=== PATIENT | male | born 1985 | race Hispanic/Latino ===

== ENCOUNTER 2022-04-13 09:31 | Emergency (ER) | payer OTHER, MEDICAID, SELFPAY ==
[2022-04-13] VITALS (13 sets, daily range): BP systolic 112–140; BP diastolic 58–82; PULSE 75–97; RESP 12–20; TEMP 36.6; O2SAT 98–100
[2022-04-13 10:39] LABS: Add Manual Diff / Slide Review NO; Basophils Absolute Auto 0 /uL (0-100); Basophils Percent Auto 0.3 % (0-2); Eosinophils Absolute Auto 100 /uL (0-450); Eosinophils Percent Auto 1.2 % (2-4); Hematocrit 36.2 % (41-53); Hemoglobin 12.5 g/dL (13.5-17.5); Lymphocytes Absolute Auto 2500 /uL (1100-4500); Lymphocytes Percent Auto 26.9 % (25-40); Mean Corpuscular HGB Conc 34.5 % (30-36); Mean Corpuscular Hemoglobin 28.5 PG (26-34); Mean Corpuscular Volume 82.5 fL (80-100); Monocytes Absolute Auto 400 /uL (0-900); Monocytes Percent Auto 3.9 % (3-14); Neutrophils Absolute Auto 6200 /uL (1500-7000); Neutrophils Percent Auto 67.7 % (50-75); Platelet Count 177 X10^3/uL (150-400); Red Blood Cell Count 4.39 X10^6/uL (4.5-5.9); Red Cell Distribution Width 14.1 % (11.6-14.8); White Blood Cell Count 9.2 X10^3/uL (4.5-11.0)
[2022-04-13 10:49] LABS: Alanine Aminotransferase 22 IU/L (<50); Albumin Globulin Ratio 1.2 (1.0-2.8); Aspartate Aminotransferase 33 IU/L (17-59); BUN Creatinine Ratio 21.8 (6-22); Bilirubin Total 0.6 mg/dL (0.2-1.3); Blood Urea Nitrogen 12 mg/dL (9-20); Calcium 8.8 mg/dL (8.4-10.2); Carbon Dioxide 31 mmol/L (22-32); Chloride 100 mmol/L (98-107); Estimated Glomerular Filt Rate > 60 mL/min (>60); Globulin 3.4 g/dL (1.7-4.1); Glucose 98 mg/dL (70-100); Lipase 71 U/L (23-300); Sodium 138 mmol/L (137-145); Total Protein 7.4 g/dL (6.3-8.2)
[2022-04-13 10:56] LABS: HEMOLYSIS 66 (0-50)
[2022-04-13 10:57] LABS: Potassium 4.2 mmol/L (3.4-5.1)
[2022-04-13 11:00] LABS: Alkaline Phosphatase 39 U/L (38-126); Ethanol (ETOH) < 10 mg/dL
[2022-04-13 11:23] LABS: UR Morphine/Opiate cutoff 300 Negative (Negative); Ur Creatinine Normal (Normal); Ur Specific Gravity Normal (Normal); Urine Amphetamines Negative (Negative); Urine Barbiturates Negative (Negative); Urine Benzodiazepines Negative (Negative); Urine Cocaine Negative (Negative); Urine MDMA Negative (Negative); Urine Methadone Negative (Negative); Urine Methamphetamines Positive (Negative); Urine Oxycodone Negative (Negative); Urine Phencyclidine Negative (Negative); Urine Tetrahydrocannabinol Negative (Negative); Urine Tricyclic Antidepressant Negative (Negative); Urine pH Normal (Normal)
[2022-04-13 11:31] LABS: Amorphous Sediment Urine 2+; RBC Urine None Seen (0-5/HPF); WBC Urine 0-1/HPF (0-5/HPF)
[2022-04-13 11:32] LABS: Bacteria Urine Few (2-10); Culture Indicated Urine Cult Not Indicated
--- NOTE | 2022-04-13 13:08 | DI.CT.S_ITS ---
PROCEDURE: CT ABDOMEN PELVIS W CON INDICATIONS: Generalized abdomnal pain TECHNIQUE: After the administration of intravenous contrast, axial sections acquired from the lung bases to the pubic symphysis. Coronal and sagittal reformats were performed. For radiation dose reduction, the following was used: automated exposure control, adjustment of mA and/or kV according to patient size. COMPARISON: None. FINDINGS: Image quality: Excellent. Lung bases: Unremarkable. Heart: No significant findings. ABDOMEN: Liver: Unremarkable. Gallbladder: Unremarkable. Biliary ducts: Unremarkable. Pancreas: Unremarkable. Spleen: Unremarkable. Adrenal Glands: Unremarkable. Kidneys and Ureters: Unremarkable. Stomach and Bowel: Stomach is within normal limits. There are multiple mildly to moderately distended loops of small bowel within the left hemiabdomen. Multiple moderately thickened loops of small bowel within the left hemiabdomen and anterior abdomen and pelvis with mild surrounding fat stranding. Colon is nondistended and demonstrates moderate diffuse stool. Normal appendix. Peritoneum: Small amount of free pelvic fluid. No free air. Ventral Wall: No hernias. Abdominal Nodes: No retroperitoneal or mesenteric adenopathy by size criteria. Vessels: Aorta and inferior vena cava are normal in size. PELVIS: Pelvic Organs: Unremarkable. Bladder: Unremarkable. Pelvic Nodes: No enlarged lymph nodes. Miscellaneous: No hernias are seen. Bones: Unremarkable. IMPRESSION: 1. Thickened and distended small bowel loops as described above. Differential considerations include ischemia, infection, inflammation with associated ileus versus early obstruction. 2. Normal appendix. 3. Small amount of ascites. Dictated by: Juliana Madrid M.D. on 04/13/2022 at 13:37 Approved by: Juliana Madrid M.D. on 04/13/2022 at 13:39
--- NOTE | 2022-04-13 13:10 | ED_ITS ---
HPI - Abdominal Pain <Nessa Mccarthy PA-C - Last Filed: 04/13/22 14:53> General Chief Complaint: Abdominal Pain Stated Complaint: abd pain Time Seen by Provider: 04/13/22 09:41 Source: patient Mode of arrival: EMS History of Present Illness HPI narrative: 36-year-old male on methadone brought in by EMS from the methadone clinic this morning for appearing overly somnolent. Patient states that he went to his methadone clinic this morning, ?felt like he was hit by a lightening bolt?, felt nauseous and vomited once. Patient also endorses somnolence, abdominal pain. Patient localizes abdominal pain to what ever is the dependent area of the abdomen, depending on his posture. Patient states that his left side hurts if he is turning to his left. Patient denies fever, chills, chest pain, shortness of breath, dysuria, flank pain. Patient endorses that his feet have been bilaterally swollen for the last 2 days, he is uncertain why. Patient endorses using fentanyl 3 days ago. Denies any other drug use. Denies alcohol use. Patient states that he was diagnosed as prediabetic, suspects that his sleepiness is from his blood glucose levels. Review of Systems <Nessa Mccarthy PA-C - Last Filed: 04/13/22 14:53> Review of Systems ROS Unobtainable: All systems reviewed & are unremarkable except as noted in HPI and below Constitutional Constitutional: Denies chills, Denies fatigue, Denies fever(s), Denies frequent falls, Denies lethargy and Denies weakness Comments: Sleepiess Eyes Eyes: Denies change in vision, Denies eye discharge, Denies irritation and Denies loss of vision ENT Ears, Nose, Mouth, and Throat: Denies change in voice, Denies dizziness, Denies neck pain, Denies sore throat and Denies throat swelling Cardiovascular Cardiovascular: Denies chest pain, Denies irregular heart rhythm, Denies lightheadedness, Denies palpitations, Denies dyspnea, Denies dyspnea on exertion and Denies orthopnea Respiratory Respiratory: Denies cough, Denies dyspnea, Denies dyspnea on exertion and Denies wheezing Gastrointestinal Gastrointestinal: Reports abdominal pain, Denies change in bowel habits, Denies diarrhea, Reports nausea and Reports vomiting Genitourinary Genitourinary: Denies hematuria, Denies flank pain, Denies urinary incontinence and Denies urinary urgency Musculoskeletal Musculoskeletal: Denies back pain, Denies muscle weakness, Denies neck pain, Denies numbness and Denies tingling Integumentary/Breasts Skin/Breast: Denies pruritus, Denies erythema, Denies rash and Denies wounds Neurologic Neurologic: Denies behavioral changes, Denies confusion, Denies dizziness, Denies frequent falls, Denies loss of vision, Denies numbness, Denies tingling and Denies weakness Psychiatric Psychiatric: Denies anxiety, Denies behavioral changes, Denies confusion, Denies depression, Denies homicidal ideation and Denies suicidal ideation Endocrine Endocrine: Denies fatigue, Denies flushing and Denies palpitations Hematologic/Lymphatic Hematologic/Lymphatic: Denies easy bruising Allergic/Immunologic Allergic/Immunologic: Denies urticaria, Denies throat swelling and Denies wheezing Patient History <Nessa Mccarthy PA-C - Last Filed: 04/13/22 14:53> Substance Use Type: opiates Exam <Nessa Mccarthy PA-C - Last Filed: 04/13/22 14:53> Narrative Exam Narrative: Const General:?cooperative, appears somnolent but arousable. [facility] Head:?normal to inspection Ears:?hearing grossly normal bilaterally Nose:?external nose normal Face and sinus:?normal facial exam and sinuses nontender Mouth:?oral mucosae normal Throat:?posterior oropharynx normal Eyes General:?appearance normal, both eyes and all related structures Neck Neck:?normal visual inspection and no lymphadenopathy noted Resp Effort & Inspection:?normal respiratory effort Auscultation:?clear to auscultation bilaterally Cardio Rate:?regular rate Rhythm:?regular rhythm GI Generalized tenderness to palpation. Abdomen is soft, nondistended. Neuro General:?patient alert, patient awake and patient oriented x3 Initial Vital Signs Initial Vital Signs: Vital Signs Temperature 97.8 F 04/13/22 09:36 Pulse Rate 86 04/13/22 09:36 Respiratory Rate 20 04/13/22 09:36 Blood Pressure 112/68 04/13/22 09:36 Pulse Oximetry 100 04/13/22 09:36 Oxygen Delivery Method 04/13/22 09:36 <Griselda Vogt DO - Last Filed: 04/14/22 08:04> Initial Vital Signs Initial Vital Signs: Vital Signs Temperature 97.8 F 04/13/22 09:36 Pulse Rate 86 04/13/22 09:36 Respiratory Rate 20 04/13/22 09:36 Blood Pressure 112/68 04/13/22 09:36 Pulse Oximetry 100 04/13/22 09:36 Oxygen Delivery Method 04/13/22 09:36 Course <Nessa Mccarthy PA-C - Last Filed: 04/13/22 14:53> Orders Ordered: Discontinued Medications Sodium Chloride (Normal Saline 0.9%) 1,000 mls @ 1,000 mls/hr IV BOLUS ONE Stop: 04/13/22 14:08 Last Infusion: 04/13/22 15:49 Dose: 0 mls/hr Documented By: Admin: 04/13/22 14:03 Dose: 1,000 mls/hr Documented By: ABHINAV Ondansetron HCl (Ondansetron 4 Mg/2 Ml Inj) 4 mg IV NOW ONE Stop: 04/13/22 13:23 Last Admin: 04/13/22 14:02 Dose: 4 mg Documented By: ABHINAV Vital Signs Vital signs: Vital Signs - 8 hr 04/13/22 09:36 04/13/22 10:33 04/13/22 11:00 Temperature 97.8 F Pulse Rate 86 76 97 H Respiratory Rate 20 13 Blood Pressure 112/68 Pulse Oximetry 100 99 Oxygen Delivery Method Room Air Room Air 04/13/22 11:30 04/13/22 12:00 04/13/22 12:30 Temperature Pulse Rate 79 78 92 H Respiratory Rate 16 19 19 Blood Pressure Pulse Oximetry 100 99 Oxygen Delivery Method Room Air <Griselda Vogt DO - Last Filed: 04/14/22 08:04> Orders Ordered: Discontinued Medications Sodium Chloride (Normal Saline 0.9%) 1,000 mls @ 1,000 mls/hr IV BOLUS ONE Stop: 04/13/22 14:08 Last Infusion: 04/13/22 15:49 Dose: 0 mls/hr Documented By: Admin: 04/13/22 14:03 Dose: 1,000 mls/hr Documented By: ABHINAV Ondansetron HCl (Ondansetron 4 Mg/2 Ml Inj) 4 mg IV NOW ONE Stop: 04/13/22 13:23 Last Admin: 04/13/22 14:02 Dose: 4 mg Documented By: ABHINAV Vital Signs Vital signs: Vital Signs - 8 hr 04/13/22 09:36 04/13/22 10:33 04/13/22 11:00 Temperature 97.8 F Pulse Rate 86 76 97 H Respiratory Rate 20 13 Blood Pressure 112/68 Pulse Oximetry 100 99 Oxygen Delivery Method Room Air Room Air 04/13/22 11:30 04/13/22 12:00 04/13/22 12:30 Temperature Pulse Rate 79 78 92 H Respiratory Rate 16 19 19 Blood Pressure Pulse Oximetry 100 99 Oxygen Delivery Method Room Air MDM - Abdominal Pain <Nessa Mccarthy PA-C - Last Filed: 04/13/22 14:53> Lab Data Lab results narrative: Labs within normal limits Result diagrams: 04/13/22 10:20 04/13/22 10:20 Labs: Lab Results 04/13/22 04/13/22 04/13/22 Range/Units 10:20 10:20 10:20 WBC 9.2 (4.5-11.0) X10^3/uL RBC 4.39 L (4.5-5.9) X10^6/uL Hgb 12.5 L (13.5-17.5) g/dL Hct 36.2 L (41-53) % MCV 82.5 (80-100) fL MCH 28.5 (26-34) PG MCHC 34.5 (30-36) % RDW 14.1 (11.6-14.8) % Plt Count 177 (150-400) X10^3/uL Neut % (Auto) 67.7 (50-75) % Lymph % (Auto) 26.9 (25-40) % [place] % (Auto) 3.9 (3-14) % Eos % (Auto) 1.2 L (2-4) % Baso % (Auto) 0.3 (0-2) % Neut # (Auto) 6200 (5745-0313) /uL Lymph # (Auto) 2500 (7474-3589) /uL [place] # (Auto) 400 (0-900) /uL Eos # (Auto) 100 (0-450) /uL Baso # (Auto) 0 (0-100) /uL Sodium 138 (137-145) mmol/L Potassium 4.2 (3.4-5.1) mmol/L Chloride 100 (98-107) mmol/L Carbon Dioxide 31 (22-32) mmol/L BUN 12 (9-20) mg/dL Creatinine 0.55 L (0.66-1.25) mg/dL Estimated GFR > 60 (>60) mL/min BUN/Creatinine Ratio 21.8 (6-22) Glucose 98 (70-100) mg/dL Calcium 8.8 (8.4-10.2) mg/dL Total Bilirubin 0.6 (0.2-1.3) mg/dL AST 33 (17-59) IU/L ALT 22 (<50) IU/L Alkaline Phosphatase 39 (38-126) U/L Total Protein 7.4 (6.3-8.2) g/dL Albumin 4.0 (3.5-5.0) g/dL Globulin 3.4 (1.7-4.1) g/dL Albumin/Globulin Ratio 1.2 (1.0-2.8) Lipase 71 (23-300) U/L Urine RBC (0-5/HPF) Urine WBC (0-5/HPF) Amorphous Sediment Urine Bacteria (None) Ur Culture Indicated? U Opiates 300ng/mL cut (Negative) Ur Oxycodone Screen (Negative) Urine Methadone Screen (Negative) Ur Barbiturates Screen (Negative) U Tricyclic Antidepress (Negative) Ur Phencyclidine Scrn (Negative) Ur Amphetamines Screen (Negative) U Methamphetamines Scrn (Negative) Ur MDMA Scrn (Ecstasy) (Negative) U Benzodiazepines Scrn (Negative) Urine Cocaine Screen (Negative) U Marijuana (THC) Screen (Negative) Ethyl Alcohol < 10 ( - 10) mg/dL 04/13/22 04/13/22 Range/Units 11:05 11:05 WBC (4.5-11.0) X10^3/uL RBC (4.5-5.9) X10^6/uL Hgb (13.5-17.5) g/dL Hct (41-53) % MCV (80-100) fL MCH (26-34) PG MCHC (30-36) % RDW (11.6-14.8) % Plt Count (150-400) X10^3/uL Neut % (Auto) (50-75) % Lymph % (Auto) (25-40) % [place] % (Auto) (3-14) % Eos % (Auto) (2-4) % Baso % (Auto) (0-2) % Neut # (Auto) (7738-5760) /uL Lymph # (Auto) (6954-3735) /uL [place] # (Auto) (0-900) /uL Eos # (Auto) (0-450) /uL Baso # (Auto) (0-100) /uL Sodium (137-145) mmol/L Potassium (3.4-5.1) mmol/L Chloride (98-107) mmol/L Carbon Dioxide (22-32) mmol/L BUN (9-20) mg/dL Creatinine (0.66-1.25) mg/dL Estimated GFR (>60) mL/min BUN/Creatinine Ratio (6-22) Glucose (70-100) mg/dL Calcium (8.4-10.2) mg/dL Total Bilirubin (0.2-1.3) mg/dL AST (17-59) IU/L ALT (<50) IU/L Alkaline Phosphatase (38-126) U/L Total Protein (6.3-8.2) g/dL Albumin (3.5-5.0) g/dL Globulin (1.7-4.1) g/dL Albumin/Globulin Ratio (1.0-2.8) Lipase (23-300) U/L Urine RBC None seen (0-5/HPF) Urine WBC 0-1/hpf (0-5/HPF) Amorphous Sediment 2+ Urine Bacteria Few (2-10) H (None) Ur Culture Indicated? Cult not indicated U Opiates 300ng/mL cut Negative (Negative) Ur Oxycodone Screen Negative (Negative) Urine Methadone Screen Negative (Negative) Ur Barbiturates Screen Negative (Negative) U Tricyclic Antidepress Negative (Negative) Ur Phencyclidine Scrn Negative (Negative) Ur Amphetamines Screen Negative (Negative) U Methamphetamines Scrn Positive H (Negative) Ur MDMA Scrn (Ecstasy) Negative (Negative) U Benzodiazepines Scrn Negative (Negative) Urine Cocaine Screen Negative (Negative) U Marijuana (THC) Screen Negative (Negative) Ethyl Alcohol ( - 10) mg/dL Point of care testing: Urine Dip Bedside Urine Glucose Negative Bedside Urine Bilirubin - Negative Bedside Urine Ketone - Negative Urine Specific [place] 1.010 Bedside Urine Occult Blood - Negative Bedside Urine pH 8.5 Bedside Urine Protein +/- 15 Bedside Urine Urobilinogen - Negative Bedside Urine Nitrite - Negative Bedside Urine Leukocytes - Negative Esterase Imaging Data CT scan - abdomen/pelvis: Radiologist's Impression: PROCEDURE:? CT ABDOMEN PELVIS W CON ? INDICATIONS:? Generalized abdomnal pain ? TECHNIQUE:? After the administration of intravenous contrast, axial sections acquired from the lung bases to the pubic symphysis.? Coronal and sagittal reformats were performed.? For radiation dose reduction, the following was used:? automated exposure control, adjustment of mA and/or kV according to patient size.? ? COMPARISON:? None. ? FINDINGS:? Image quality:? Excellent.? ? Lung bases:? Unremarkable. Heart:? No significant findings. ? ABDOMEN: Liver:? Unremarkable.? ? Gallbladder:? Unremarkable.? ? Biliary ducts:? Unremarkable.? ? Pancreas:? Unremarkable.? ? Spleen:? Unremarkable.? ? Adrenal Glands:? Unremarkable.? ? Kidneys and Ureters:? Unremarkable.? ? ? Stomach and Bowel:? Stomach is within normal limits.? There are multiple mildly to moderately distended loops of small bowel within the left hemiabdomen.? Multiple moderately thickened loops of small bowel within the left hemiabdomen and anterior abdomen and pelvis with mild surrounding fat stranding.? Colon is nondistended and demonstrates moderate diffuse stool.? Normal appendix. Peritoneum:? Small amount of free pelvic fluid.? No free air.? ? Ventral Wall: ? No hernias.? Abdominal Nodes:? No retroperitoneal or mesenteric adenopathy by size criteria.? Vessels:? Aorta and inferior vena cava are normal in size.? ? PELVIS: Pelvic Organs:? Unremarkable.? ? Bladder:? Unremarkable.? ? Pelvic Nodes: No enlarged lymph nodes.? Miscellaneous: No hernias are seen. ? ? ? Bones:? Unremarkable.? IMPRESSION:? 1. Thickened and distended small bowel loops as described above.? Differential considerations include ischemia, infection, inflammation with associated ileus versus early obstruction. 2. Normal appendix. 3. Small amount of ascites.? ? ? Dictated by: Juliana Madrid M.D. on 04/13/2022 at 13:37 ? ? MDM Narrative Medical decision making narrative: 36-year-old male on methadone brought in by EMS from the methadone clinic this morning for appearing overly somnolent. Concern for intra-abdominal pathology versus opiate use versus other. Will obtain labs, U tox, ethanol, UA, CT abdomen pelvis. Will give IV fluids, Zofran. Will reassess. Labs, UA within normal limits. CT shows: Thickened and distended small bowel loops as described above.? Differential considerations include ischemia, infection, inflammation with associated ileus versus early obstruction. Patient's symptoms improved over ED stay. Patient states abdominal pain significantly improved. Patient is more awake. Patient not nauseous or vomiting. Patient eager to go home, agrees to come to the ED if his symptoms worsen. ED return precautions discussed in detail. Patient verbalized und erstanding. <Griselda Vogt, DO - Last Filed: 04/14/22 08:04> Lab Data Labs: Lab Results 04/13/22 04/13/22 04/13/22 Range/Units 10:20 10:20 10:20 WBC 9.2 (4.5-11.0) X10^3/uL RBC 4.39 L (4.5-5.9) X10^6/uL Hgb 12.5 L (13.5-17.5) g/dL Hct 36.2 L (41-53) % MCV 82.5 (80-100) fL MCH 28.5 (26-34) PG MCHC 34.5 (30-36) % RDW 14.1 (11.6-14.8) % Plt Count 177 (150-400) X10^3/uL Neut % (Auto) 67.7 (50-75) % Lymph % (Auto) 26.9 (25-40) % [place] % (Auto) 3.9 (3-14) % Eos % (Auto) 1.2 L (2-4) % Baso % (Auto) 0.3 (0-2) % Neut # (Auto) 6200 (7332-7502) /uL Lymph # (Auto) 2500 (0904-0581) /uL [place] # (Auto) 400 (0-900) /uL Eos # (Auto) 100 (0-450) /uL Baso # (Auto) 0 (0-100) /uL Sodium 138 (137-145) mmol/L Potassium 4.2 (3.4-5.1) mmol/L Chloride 100 (98-107) mmol/L Carbon Dioxide 31 (22-32) mmol/L BUN 12 (9-20) mg/dL Creatinine 0.55 L (0.66-1.25) mg/dL Estimated GFR > 60 (>60) mL/min BUN/Creatinine Ratio 21.8 (6-22) Glucose 98 (70-100) mg/dL Calcium 8.8 (8.4-10.2) mg/dL Total Bilirubin 0.6 (0.2-1.3) mg/dL AST 33 (17-59) IU/L ALT 22 (<50) IU/L Alkaline Phosphatase 39 (38-126) U/L Total Protein 7.4 (6.3-8.2) g/dL Albumin 4.0 (3.5-5.0) g/dL Globulin 3.4 (1.7-4.1) g/dL Albumin/Globulin Ratio 1.2 (1.0-2.8) Lipase 71 (23-300) U/L Urine RBC (0-5/HPF) Urine WBC (0-5/HPF) Amorphous Sediment Urine Bacteria (None) Ur Culture Indicated? U Opiates 300ng/mL cut (Negative) Ur Oxycodone Screen (Negative) Urine Methadone Screen (Negative) Ur Barbiturates Screen (Negative) U Tricyclic Antidepress (Negative) Ur Phencyclidine Scrn (Negative) Ur Amphetamines Screen (Negative) U Methamphetamines Scrn (Negative) Ur MDMA Scrn (Ecstasy) (Negative) U Benzodiazepines Scrn (Negative) Urine Cocaine Screen (Negative) U Marijuana (THC) Screen (Negative) Ethyl Alcohol < 10 ( - 10) mg/dL 04/13/22 04/13/22 Range/Units 11:05 11:05 WBC (4.5-11.0) X10^3/uL RBC (4.5-5.9) X10^6/uL Hgb (13.5-17.5) g/dL Hct (41-53) % MCV (80-100) fL MCH (26-34) PG MCHC (30-36) % RDW (11.6-14.8) % Plt Count (150-400) X10^3/uL Neut % (Auto) (50-75) % Lymph % (Auto) (25-40) % [place] % (Auto) (3-14) % Eos % (Auto) (2-4) % Baso % (Auto) (0-2) % Neut # (Auto) (2696-1648) /uL Lymph # (Auto) (2670-8096) /uL [place] # (Auto) (0-900) /uL Eos # (Auto) (0-450) /uL Baso # (Auto) (0-100) /uL Sodium (137-145) mmol/L Potassium (3.4-5.1) mmol/L Chloride (98-107) mmol/L Carbon Dioxide (22-32) mmol/L BUN (9-20) mg/dL Creatinine (0.66-1.25) mg/dL Estimated GFR (>60) mL/min BUN/Creatinine Ratio (6-22) Glucose (70-100) mg/dL Calcium (8.4-10.2) mg/dL Total Bilirubin (0.2-1.3) mg/dL AST (17-59) IU/L ALT (<50) IU/L Alkaline Phosphatase (38-126) U/L Total Protein (6.3-8.2) g/dL Albumin (3.5-5.0) g/dL Globulin (1.7-4.1) g/dL Albumin/Globulin Ratio (1.0-2.8) Lipase (23-300) U/L Urine RBC None seen (0-5/HPF) Urine WBC 0-1/hpf (0-5/HPF) Amorphous Sediment 2+ Urine Bacteria Few (2-10) H (None) Ur Culture Indicated? Cult not indicated U Opiates 300ng/mL cut Negative (Negative) Ur Oxycodone Screen Negative (Negative) Urine Methadone Screen Negative (Negative) Ur Barbiturates Screen Negative (Negative) U Tricyclic Antidepress Negative (Negative) Ur Phencyclidine Scrn Negative (Negative) Ur Amphetamines Screen Negative (Negative) U Methamphetamines Scrn Positive H (Negative) Ur MDMA Scrn (Ecstasy) Negative (Negative) U Benzodiazepines Scrn Negative (Negative) Urine Cocaine Screen Negative (Negative) U Marijuana (THC) Screen Negative (Negative) Ethyl Alcohol ( - 10) mg/dL Point of care testing: Urine Dip Bedside Urine Glucose Negative Bedside Urine Bilirubin - Negative Bedside Urine Ketone - Negative Urine Specific [place] 1.010 Bedside Urine Occult Blood - Negative Bedside Urine pH 8.5 Bedside Urine Protein +/- 15 Bedside Urine Urobilinogen - Negative Bedside Urine Nitrite - Negative Bedside Urine Leukocytes - Negative Esterase ECG Data Attestation: I personally reviewed and interpreted this ECG as follows: Interpretation: Sinus rhythm rate of 70 P are 160 QRS 100 and QTC 444. No acute ST changes. Discharge Plan Departure Patient Disposition: Home Clinical Impression: Abdominal pain Instructions: DI for Abdominal Pain-Adult Activity Restrictions/Additional Instructions: You were evaluated in the ED today for abdominal pain, nausea, vomiting. Your labs were within normal limits. Your CT abdomen showed a possible early obstruction of the small bowel or food poisoning. Please return to the ED if you have worsening abdominal pain, uncontrollable vomiting, unable to hold down any liquids or solids, fever, chills. Visit Report Forms: Patient Portal/API <Griselda Vogt DO - Last Filed: 04/14/22 08:04> Cosign ED Attending Gigi Attestation: I was immediately available in the department for consultation. Documentation h as been reviewed. Patient was seen briefly by myself as well. Case was discussed. Agree with current plan.
[2022-04-13] MEDS: ONDANSETRON 4 MG/2 ML INJ IV (14:02)
[2022-04-13] MEDS: SODIUM CHLORIDE 0.9% 1,000 ML 1000 ML IV (14:03)
--- NOTE | 2022-04-13 16:10 | PC.NURSE ---
Patient has no ride, family not answering phones. He lives in [place]. No [employer] or [employer] availability. Called Medicaid transport and faxing forms to facilitate a ride home. Patient moved to a recliner while we secure transportation.
== END 2022-04-13 16:54 | disposition home or self-care (01) ==
PROVIDERS: Emergency Medicine; Emergency Provider Student in an Organized Health Care Education/Training Program
DX: R10.9 Unspecified abdominal pain (principal); R11.2 Nausea with vomiting, unspecified
CPT/HCPCS: 74177; 80053; 80305; 80320; 81003; 81015; 83690; 85025; 93005; 96361; 96374; 99284; J2405; Q9967